=== PATIENT | male | born 1965 | race Two or more races ===

== ENCOUNTER 2020-02-21 03:06 | Emergency (ER) | payer SELFPAY ==
[~2020-02-21] VITALS: Ht 180.3 cm; Wt 146.1 kg
[2020-02-21 03:07] VITALS: BP 151/96
[2020-02-21] MEDS ORDERED: HYDROCODONE/APAP 5/325MG TABLET ONE ×2 (04:16→04:22)
[2020-02-21] MEDS ORDERED: HYDROCODONE/APAP 5/325MG TABLET PO ONE ×2 (04:30)
--- NOTE | 2020-02-21 05:27 | NUR ---
[employer] AT BEDSIDE SPEAKING WITH PATIENT.
--- NOTE | 2020-02-21 05:31 | NUR ---
WRIST SPLINT PLACED ON THE LEFT ARM. COLOR OF SKIN IS CONSISTENT WITH RACE. PATIENT'S PULSES ARE STRONG EQUALLY AND BILATERALLY. PATIENT IS AMBULATORY WITH A STEADY GAIT.
--- NOTE | 2020-02-21 05:35 | NUR ---
Patient discharged to home in stable condition. Written and verbal after care instructions given. Patient verbalizes understanding of instruction.
== END 2020-02-21 05:35 | disposition home or self-care (01) ==
LOC: ER 03:08
DX: S52.572A Other intraarticular fracture of lower end of left radius, initial encounter for closed fracture (principal); S52.612A Displaced fracture of left ulna styloid process, initial encounter for closed fracture; S20.219A Contusion of unspecified front wall of thorax, initial encounter; V49.49XA Driver injured in collision with other motor vehicles in traffic accident, initial encounter; Y93.89 Activity, other specified; Y92.413 State road as the place of occurrence of the external cause; Y99.8 Other external cause status
CPT/HCPCS: 71045-TC; 73110